=== PATIENT | female | born 1965 | race Caucasian/White ===

== ENCOUNTER → 2021-11-13 | Outpatient (CLI) | payer OTHER ==
[2021-11-13 15:07] LABS: GLUCOSE,CSF 59 mg/dL (50-80); TOTAL PROTEIN,CSF 38 mg/dL (20-45)
[2021-11-13 15:11] LABS: WBC (AUTOMATED 1 10^3 (0-5)
[2021-11-13 15:12] LABS: WBC (AUTOMATED 0 10^3 (0-5)
[2021-11-15 16:14] LABS: CSF IGG INDEX 0.7 (0.0-0.7); IMMUNOGLOBULIN G, QN, SERUM 646 mg/dL (586-1602); MYELIN BASIC PROTEIN, CSF 4.3 ng/mL (0.0-3.7)
== END ==
LOC: RAD 11-08 08:00 → OR 10:15 → RAD 12:28
PROVIDERS: Psychiatry & Neurology Neurology
DX: G35 Multiple sclerosis (principal)
CPT/HCPCS: 82040; 82784; 82945; 83873; 83916; 84157; 87015; 87070; 87116; 87205; 87210; 89051